=== PATIENT | female | born 2000 | race Caucasian/White ===

== ENCOUNTER → 2018-07-11 | Emergency (ER) | payer BC | END | disposition home or self-care (01) | LOC: FTE 22:38 | DX: S89.92XA Unspecified injury of left lower leg, initial encounter (principal); X58.XXXA Exposure to other specified factors, initial encounter; Y92.322 Soccer field as the place of occurrence of the external cause | CPT/HCPCS: 99282 ==

== ENCOUNTER 2019-02-02 08:18 | Day surgery (SDC) | payer BC ==
[2019-02-02] MEDS ORDERED: PROPOFOL 20 ML (09:07)
[2019-02-02] MEDS ORDERED: GLYCOPYRROLATE 0.4 MG INJ (09:07)
[2019-02-02] MEDS ORDERED: ROCURONIUM 50 MG INJ (09:07)
[2019-02-02] MEDS ORDERED: FENTAnyl 50 MCG/ML VIAL ×2 (09:07→14:24)
[2019-02-02] MEDS ORDERED: CEFAZOLIN 1 GM INJ (09:07)
[2019-02-02] MEDS ORDERED: MIDAZOLAM 1 MG/ML 2 ML INJ (09:07)
[2019-02-02] MEDS ORDERED: NEOSTIGMINE 3 MG/3 ML SYRINGE (09:07)
[2019-02-02] MEDS ORDERED: ROPIVACAINE 0.5 % 30 ML VIAL ×2 (09:07→10:05)
[2019-02-02] MEDS ORDERED: ONDANSETRON 4 MG INJ ×2 (09:07→14:23)
[2019-02-02] MEDS ORDERED: DEXAMETHASONE 4 MG/ML 5 ML INJ (09:07)
[2019-02-02] MEDS ORDERED: NEOMYC/POLYMYX/BACIT 30 GM OINT (10:05)
[2019-02-02] MEDS: POLYMYXIN/BACITRACIN 1L IRRIG (11:59)
[2019-02-02] MEDS ORDERED: SUGAMMADEX SODIUM 200 MG/2 ML VIAL IV (13:53)
[2019-02-02] MEDS ORDERED: morphine 2 MG INJ IV (14:00)
[2019-02-02] MEDS: KETOROLAC 30 MG INJ IV (14:00)
[2019-02-02] MEDS ORDERED: MEPERIDINE 25 MG INJ (14:24)
[2019-02-02] MEDS: MEPERIDINE 25 MG INJ IV (14:44)
[2019-02-02] MEDS: ONDANSETRON 4 MG INJ IV (14:45)
[2019-02-02] MEDS: FENTAnyl 50 MCG/ML VIAL IV ×2 (14:45→15:03)
[2019-02-02] MEDS ORDERED: ALBUTEROL 0.083% (NEB) 2.5 MG/3 ML AMP HHN (15:00)
[2019-02-02] MEDS ORDERED: TRIMETHOBENZAMIDE 100 MG/ML VIAL IM (15:00)
[2019-02-02] MEDS ORDERED: OXYCODONE/ACETAMINOPHEN (5/325) TAB PO (15:00)
[2019-02-02] MEDS ORDERED: EPHEDrine SULFATE 50 MG/5 ML SYG IV (15:00)
[2019-02-02] MEDS ORDERED: LABETALOL HCL 20MG INJ IV (15:00)
[2019-02-02] MEDS ORDERED: HYDROmorphONE 1 MG/5 ML IV SYRINGE IV ×3 (15:00)
[2019-02-02] MEDS ORDERED: hydrALAzine 20 MG INJ IV (15:00)
[2019-02-02] MEDS ORDERED: MIDAZOLAM 1 MG/ML 2 ML INJ IV (15:00)
[2019-02-02] MEDS ORDERED: DIPHENHYDRAMINE 50 MG INJ IV (15:00)
[2019-02-02] MEDS ORDERED: IPRATROPIUM (NEB) 0.5 MG/2.5 ML AMP HHN (15:00)
[2019-02-02] MEDS ORDERED: FENTAnyl 50 MCG/ML VIAL IV ×2 (15:00)
[2019-02-02] MEDS ORDERED: KETOROLAC 30 MG INJ (15:08)
[2019-02-02] MEDS: OXYCODONE/ACETAMINOPHEN (5/325) TAB PO (16:17)
== END 2019-02-02 17:20 | disposition home or self-care (01) ==
LOC: SDS 08:18
DX: S83.512D Sprain of anterior cruciate ligament of left knee, subsequent encounter (principal); S83.282D Other tear of lateral meniscus, current injury, left knee, subsequent encounter; S83.242D Other tear of medial meniscus, current injury, left knee, subsequent encounter; X58.XXXD Exposure to other specified factors, subsequent encounter; M94.262 Chondromalacia, left knee
CPT/HCPCS: 29880; 73562; 82306

== ENCOUNTER 2019-02-13 18:29 | Emergency (ER) | payer BC | END 2019-02-13 20:19 | disposition home or self-care (01) | LOC: E/R 18:29 | DX: R22.42 Localized swelling, mass and lump, left lower limb (principal); M79.605 Pain in left leg; F41.9 Anxiety disorder, unspecified; Z87.828 Personal history of other (healed) physical injury and trauma | CPT/HCPCS: 93971; 99284-25 ==